=== PATIENT | male | born 1995 | race African-American/Black ===

== ENCOUNTER 2025-02-19 16:21 | Emergency (ER) | payer MEDICAID, OTHER ==
[~2025-02-19] VITALS: Ht 188 cm; Wt 95.0 kg
[2025-02-19 16:22] VITALS: BP 119/66; PULSE 73; RESP 14; TEMP 36.6; O2SAT 99
== END 2025-02-19 17:08 | disposition home or self-care (01) ==
LOC: ER 16:21
DX: Z00.00 Encounter for general adult medical examination without abnormal findings (principal); Z59.01 Sheltered homelessness
CPT/HCPCS: 99283